=== PATIENT | female | born 1940 | race Caucasian/White ===

== ENCOUNTER 2017-01-08 18:54 | Emergency (ER) | payer MEDICARE, BC ==
[2017-01-08] MEDS ORDERED: ALBUTEROL/IPRATROPIUM 2.5/0.5 MG 3 ML/EACH DOSE ONE ×2 (19:33→21:16)
[2017-01-08 19:42] LABS: ABSOLUTE NEUTROPHIL COUNT 16.5 K/mm3 (1.8-7.7); BASO % 0.2 % (0.2-1.0); EOS % 0.1 % (0.9-2.9); HEMOGLOBIN 10.5 gm/l (12.0-16.0); IMM NEUT # 0.1 K/mm3 (0-0.2); IMM NEUT% 0.4 % (0-1); LYMPH # 1.1 (1.0-4.8); LYMPH % 5.9 % (15-45); MEAN CELL VOLUME 87.3 fl (81.0-99.0); MEAN CORPUSCULAR HEMOGLOBIN 27.8 pg (27.0-31.0); MEAN CORPUSCULAR HGB CONC 31.8 g/dl (33.0-37.0); MEAN PLATELET VOLUME 10.8 fl (7.4-10.4); MONO # 1.2 (0.0-0.8); MONO % 6.4 % (4-12); PLATELET COUNT 273 K/mm3 (130-400)
[2017-01-08 19:50] LABS: ALBUMIN 3.2 gm/dL (3.5-5.7); CALCIUM 8.9 mg/dL (8.6-10.3)
[2017-01-08] MEDS ORDERED: CEFTRIAXONE 1 GRAM DUPLEX 50 ML IV ONE (20:44)
[2017-01-08] MEDS ORDERED: HEPARIN SODIUM PREMIX 500 ML IV ONE (20:44)
[2017-01-08] MEDS ORDERED: Heparin Sodium 5000 unit/0.5ml syringe ONE (20:44)
--- NOTE | 2017-01-08 20:49 | RAD ---
01/08/2017 8:42 PM CHEST - 2 VIEWS History: Shortness of breath with cough. Comparison: 12/29/2016 Findings: Two views of the chest are obtained. The lungs demonstrate worsening left-sided effusion with patchy bibasilar airspace disease. Findings may relate to compressive atelectasis though edema or pneumonia could've similar appearance. The cardiomediastinal silhouette is unremarkable.. The osseous structures are intact.. Median sternotomy wires are present. IMPRESSION: Probable worsening of the patient's failure. Pneumonia could've a similar appearance with parapneumonic effusion..
== END 2017-01-08 22:03 | disposition short-term general hospital (02) ==
LOC: ED 18:54
DX: I21.4 Non-ST elevation (NSTEMI) myocardial infarction (principal); J18.9 Pneumonia, unspecified organism; I25.2 Old myocardial infarction; I10 Essential (primary) hypertension; J45.909 Unspecified asthma, uncomplicated
CPT/HCPCS: 83880; 85025; 87040; 80053; 84484; 71020; 94640 ×2; 96375; 99285 ×2; 96365; 93005; J1644; J0696